=== PATIENT | male | born 1955 | race Caucasian/White ===

== ENCOUNTER 2017-04-06 23:32 | Emergency (ER) | payer MEDICAID ==
[2017-04-07 01:03] LABS: UA SPECIFIC GRAVITY <=1.005 (1.005-1.035); microscopic required? YES; urine erythrocyte 3+ (NEGATIVE)
[2017-04-07 01:08] LABS: CALCIUM 9.3 mg/dL (8.5-10.1); CARBON DIOXIDE 24.8 mmol/L (21-32); CHLORIDE SERUM 103 mmol/L (98-107); GFR1 > 60 mL/min; GLUCOSE SERUM 201 mg/dL (74-106); POTASSIUM SERUM 3.5 mmol/L (3.5-5.1); SODIUM SERUM 138 mmol/L (136-145)
[2017-04-07 02:01] LABS: PLATELET COUNT 299 x10^3mcL (130-400); RED CELL DISTRIBUTION WIDTH 12.2 % (11.5-14.5)
[2017-04-07 02:02] LABS: BASOPHIL % 1.6 % (0-2)
[2017-04-07 02:40] VITALS: BP 135/91
== END 2017-04-07 02:40 | disposition home or self-care (01) ==
LOC: ED 23:32
PROVIDERS: Emergency Medicine
DX: R33.9 Retention of urine, unspecified (principal); I10 Essential (primary) hypertension
CPT/HCPCS: J3010; Q0092; Q0162

== ENCOUNTER 2017-04-12 12:31 | Emergency (ER) | payer MEDICAID ==
[~2017-04-12] VITALS: Ht 182.9 cm; Wt 83.2 kg
[2017-04-12 15:56] VITALS: BP 131/49
== END 2017-04-12 15:56 | disposition home or self-care (01) ==
LOC: ED 12:31
DX: N39.0 Urinary tract infection, site not specified (principal); I10 Essential (primary) hypertension

== ENCOUNTER 2017-04-16 12:22 | Inpatient (IN) | payer MEDICAID ==
[~2017-04-16] VITALS: Ht 185.4 cm; Wt 82.1 kg
[2017-04-16 13:21] LABS: microscopic required? YES; urine erythrocyte 1+ (NEGATIVE)
[2017-04-16 13:36] LABS: PLATELET COUNT 308 x10^3mcL (130-400); RED CELL DISTRIBUTION WIDTH 13.4 % (11.5-14.5)
[2017-04-16 13:47] LABS: CALCIUM 8.8 mg/dL (8.5-10.1); CARBON DIOXIDE 25.6 mmol/L (21-32); CHLORIDE SERUM 103 mmol/L (98-107); GFR1 > 60 mL/min; GLUCOSE SERUM 122 mg/dL (74-106); POTASSIUM SERUM 3.7 mmol/L (3.5-5.1); SODIUM SERUM 139 mmol/L (136-145)
[2017-04-16 13:52] LABS: ALBUMIN 3.4 g/dL (3.4-5.0); ALKALINE PHOSPHATASE 51 U/L (46-116); ALT/SGPT 24 U/L (16-63); AST/SGOT 21 U/L (15-37); BILIRUBIN TOTAL 1.19 mg/dL (0.20-1.00); TOTAL PROTEIN, SERUM 7.8 g/dL (6.4-8.2)
[2017-04-16] MEDS ORDERED: FLOMAX0.4 MG PO (14:01)
[2017-04-16] MEDS ORDERED: CEPHALEXIN500 MG PO (14:01)
[2017-04-16 14:58] LABS: BAND NEUTROPHIL 2 % (0-10); METAMYELOCTE 5 % (0-2); MONOCYTE 4 % (0-7); SEGMENTED NEUTROPHILS 84 % (37-75)
[2017-04-16 14:59] LABS: rbc morphology (normal/abnorm) NORMAL (NORMAL)
[2017-04-16 15:00] LABS: PLATELET MORPHOLOGY FEW LARGE PLATELETS
[2017-04-16 15:08] VITALS: BP 130/75
[2017-04-16 16:15] LABS: CHOLESTEROL/HDL RATIO 3.2; MAGNESIUM 2.1 mg/dL (1.8-2.4); PHOSPHOROUS 1.8 mg/dL (2.5-4.9)
[2017-04-16 16:25] LABS: FREE T4 1.03 ng/dL (0.76-1.46); FREE THYROXINE INDEX 2.9 ug/dL (1.4-4.5); T4(THYROXINE) 7.7 ug/dL (4.7-13.3)
[2017-04-16 16:26] LABS: T3 TOTAL 0.75 ng/mL
[2017-04-16 16:33] VITALS: BP 131/73
[2017-04-16 21:29] VITALS: BP 129/77
[2017-04-17 05:39] VITALS: BP 137/76
[2017-04-17 06:10] LABS: PLATELET COUNT 253 x10^3mcL (130-400); RED CELL DISTRIBUTION WIDTH 13.4 % (11.5-14.5)
[2017-04-17 06:37] LABS: CALCIUM 8.2 mg/dL (8.5-10.1); CARBON DIOXIDE 24.2 mmol/L (21-32); CHLORIDE SERUM 103 mmol/L (98-107); CREATININE SERUM 0.8 mg/dL (0.7-1.3); GFR1 > 60 mL/min; GLUCOSE SERUM 102 mg/dL (74-106); PHOSPHOROUS 2.5 mg/dL (2.5-4.9); POTASSIUM SERUM 3.9 mmol/L (3.5-5.1); SODIUM SERUM 137 mmol/L (136-145)
[2017-04-17 07:38] LABS: BAND NEUTROPHIL 3 % (0-10); BASOPHIL 0 % (0-2); METAMYELOCTE 4 % (0-2); MONOCYTE 7 % (0-7); SEGMENTED NEUTROPHILS 80 % (37-75)
[2017-04-17 07:40] LABS: PLATELET MORPHOLOGY PLATELETS NORMAL
[2017-04-17 07:41] LABS: rbc morphology (normal/abnorm) NORMAL (NORMAL)
[2017-04-17 11:03] VITALS: BP 144/86
[2017-04-17 13:20] VITALS: BP 145/81
[2017-04-17 18:20] VITALS: BP 156/93
[2017-04-17] MEDS ORDERED: LEVOFLOXACIN500 M1 PO (20:07)
[2017-04-17] MEDS ORDERED: LAC PO (20:08)
[2017-04-17] MEDS ORDERED: TAMSULOSIN HYD0.4 M1 PO (20:10)
[2017-04-17 22:09] VITALS: BP 168/90
[2017-04-17 23:48] VITALS: BP 139/78
[2017-04-18 06:20] LABS: BASOPHIL % 0.9 % (0-2); PLATELET COUNT 279 x10^3mcL (130-400); RED CELL DISTRIBUTION WIDTH 12.6 % (11.5-14.5)
[2017-04-18 06:40] VITALS: BP 149/77
[2017-04-18 10:53] VITALS: BP 119/66
[2017-04-18 15:15] VITALS: BP 148/73
[2017-04-18 18:05] VITALS: BP 117/68
[2017-04-18 21:41] VITALS: BP 122/68
[2017-04-19 04:15] VITALS: BP 135/75
[2017-04-19 06:00] LABS: BASOPHIL % 0.5 % (0-2); PLATELET COUNT 248 x10^3mcL (130-400); RED CELL DISTRIBUTION WIDTH 13.6 % (11.5-14.5)
[2017-04-19 06:09] VITALS: BP 134/84
[2017-04-19 08:52] VITALS: BP 136/79
[2017-04-19] MEDS ORDERED: ACETAMINOPHEN-H1 TA1 PO (10:36)
[2017-04-19] MEDS ORDERED: PROS5 PO (10:37)
[2017-04-19 11:58] VITALS: BP 136/79
[2017-04-19] MEDS ORDERED: CIPRO500 MG PO (16:50)
[2017-04-19] MEDS ORDERED: AVODART0.5 M1 PO (18:52)
== END 2017-04-19 13:40 | disposition home or self-care (01) | DRG 720 ==
LOC: ED 12:22 → DU 14:02
PROVIDERS: Emergency Medicine; ADMIT Family Medicine
DX: A41.9 Sepsis, unspecified organism (principal); N17.0 Acute kidney failure with tubular necrosis; N39.0 Urinary tract infection, site not specified; B96.20 Unspecified Escherichia coli [E. coli] as the cause of diseases classified elsewhere; E44.0 Moderate protein-calorie malnutrition; R73.03 Prediabetes; R31.9 Hematuria, unspecified; D64.9 Anemia, unspecified; E83.39 Other disorders of phosphorus metabolism; N41.9 Inflammatory disease of prostate, unspecified; N40.0 Benign prostatic hyperplasia without lower urinary tract symptoms; Z68.32 Body mass index [BMI] 32.0-32.9, adult; E80.6 Other disorders of bilirubin metabolism
CPT/HCPCS: 76770; 82962; 83880; 84439; J0696; J1885; J1956; J2270; J7030; Q0092; Q9967

== ENCOUNTER 2019-07-23 09:38 | Emergency (ER) | payer MEDICAID ==
[~2019-07-23] VITALS: Ht 185.4 cm; Wt 72.6 kg
[~2019-07-23 09:38] MED LIST: ACETAMINOPHEN-H1 TA1 PO; AVODART0.5 M1 PO; CEPHALEXIN500 MG PO; CIPRO500 MG PO; FLOMAX0.4 MG PO; LAC PO; LEVOFLOXACIN500 M1 PO; PROS5 PO; TAMSULOSIN HYD0.4 M1 PO
[2019-07-23 09:41] VITALS: BP 156/84
== END 2019-07-23 10:58 | disposition home or self-care (01) ==
LOC: ED 09:38
DX: J11.1 Influenza due to unidentified influenza virus with other respiratory manifestations (principal); I10 Essential (primary) hypertension
CPT/HCPCS: 87804; J1885; Q0092

== ENCOUNTER 2019-09-12 16:55 | Emergency (ER) | payer MEDICAID ==
[~2019-09-12] VITALS: Ht 182.9 cm; Wt 83.0 kg
[2019-09-12 17:10] VITALS: Ht 182.9 cm; Wt 83.0 kg
[2019-09-12 19:16] VITALS: BP 140/91
== END 2019-09-12 19:16 | disposition home or self-care (01) ==
LOC: ED 16:55
DX: M43.6 Torticollis (principal); I10 Essential (primary) hypertension; E78.00 Pure hypercholesterolemia, unspecified; J02.9 Acute pharyngitis, unspecified
CPT/HCPCS: J1885